=== PATIENT | female | born 1960 | race Caucasian/White ===

== ENCOUNTER 2022-12-06 09:52 | Emergency (ER) | payer OTHER ==
[~2022-12-06] VITALS: Ht 160 cm; Wt 85.7 kg
[2022-12-06] MEDS ORDERED: NORVASC10 MG PO (10:16)
[2022-12-06] MEDS ORDERED: DIOVAN320 MG PO (10:16)
[2022-12-06] MEDS ORDERED: XOPENEX CO1.25 MG/0. (10:17)
[2022-12-06] MEDS ORDERED: METFORMIN HCL500 M3 PO (10:17)
[2022-12-06] MEDS ORDERED: CRESTOR5 MG PO (10:17)
[2022-12-06] MEDS ORDERED: SYNTHROID88 MCG PO (10:17)
[2022-12-06] MEDS ORDERED: [UNRECOGNIZED DRUG - OTHER] (10:18)
[2022-12-06] MEDS ORDERED: LEVSIN/SL0.125 MG (10:18)
[2022-12-06 11:11] LABS: CALCIUM 10.4 mg/dL (8.5-10.1); CREATININE SERUM 0.63 mg/dL (0.55-1.02); GFR 96.07; POTASSIUM 3.89 mEq/L (3.5-5.1)
[2022-12-06 11:42] LABS: HEMATOCRIT 41.1 % (36.0-45.00); HEMOGLOBIN 13.2 g/dL (12.0-15.00); MEAN CELL VOLUME 84.9 fL (80.00-100.00); MEAN CORPUSCULAR HEMOGLOBIN 27.3 pg (27.00-32.0); MEAN CORPUSCULAR HGB CONC 32.1 g/dl (32.0-36.0); PLATELET COUNT 213 K/uL (150-450); RED BLOOD COUNT 4.85 M/uL (4.00-6.00); RED CELL DISTRIBUTION WIDTH 13.6 % (11.5-14.5)
== END 2022-12-06 13:13 | disposition home or self-care (01) ==
LOC: ER 09:52
PROVIDERS: Emergency Medicine
DX: K29.70 Gastritis, unspecified, without bleeding (principal); E11.9 Type 2 diabetes mellitus without complications; Z79.84 Long term (current) use of oral hypoglycemic drugs; I10 Essential (primary) hypertension; Z88.0 Allergy status to penicillin; Z88.2 Allergy status to sulfonamides; Z88.8 Allergy status to other drugs, medicaments and biological substances
CPT/HCPCS: 36415; 96365; 99283; J3490